=== PATIENT | male | born 1990 | race Native Hawaiian/Other Pacific Islander ===

== ENCOUNTER 2019-11-15 19:03 | Emergency (ER) | payer SELFPAY ==
--- NOTE | 2019-11-15 19:28 | ED Physician Documentation ---
History of Present Illness - Stated complaint Stated Complaint: L PINKY INJ - Chief complaint Chief Complaint: Trauma Ext - Additonal information Additional information: This is a 29-year-old man who presents with a left pinky injury. He was playing basketball and his pinky caught on the elbow of his friend and twisted and snapped backwards. The bone of the finger popped through the skin, and he has a small open wound on the finger. He tried to reduce it himself and he was unable to do so. His pain is minimal right now, he states it felt tingly at first but now he is able to feel sensation over the finger. He has no pain in the rest of his hand. Review of Systems Skin: reports: Laceration (s) Musculoskeletal: reports: Extremity pain PD PAST MEDICAL HISTORY - Past Medical History Past Medical History: No - Present Medications Home Medications: Ambulatory Orders Medication Instructions Recorded Confirmed Cephalexin [Keflex] 500 mg PO Q6H #28 capsule 11/15/19 - Allergies Allergies/Adverse Reactions: Allergies Allergy/AdvReac Type Severity Reaction Status Date / Time No Known Drug Allergies Allergy Verified 11/15/19 19:13 - Living Situation Living Arrangement: reports: At home - Social History Smoking Status: Never smoker PD ED PE NORMAL - Vitals Vital signs reviewed: Yes - General General: Alert and oriented X 3 - HEENT HEENT: Atraumatic - Cardiac Cardiac: RRR - Respiratory Respiratory: No respiratory distress - Extremities Extremities: Other (Over the left radial aspect of the DIP there is a 1.5 cm laceration visible bone, no deformity. Patient is able to wiggle the tip of his finger and sensation is intact to light touch distally. No proximal phalanx pain, remainder of the hand is nontender.) - Neuro Neuro: Alert and oriented X 3 Results - Vitals Vitals: Vital Signs - 24 hr 11/15/19 11/15/19 19:09 21:26 Temperature 36.7 C 36.7 C Heart Rate 94 73 Respiratory 18 18 Rate Blood Pressure 156/95 H 166/102 H O2 Saturation 100 99 Oxygen O2 Source Room air - Rads (name of study) Xr R fingers Radiology: Other (Lateral proximal dislocation of the distal phalanx fifth digit, with a displaced 3 mm cortical fracture fragment the dislocated distal phalanx base) XR post-reduction Radiology: Other (Anatomic alignment of the finger with previous fracture no longer visualized) Procedures - Laceration (location) L finger Length in cm: 2 Wound type: Curved Neurovascular status: Sensory intact, Motor intact, Vascular intact Anesthesia: Lidocaine 1%, With bicarb Wound Preparation: Irrigated copiously NS, Wound explored Skin layer closure: Prolene, Size #-0 - enter number (6) Other: Patient tolerated well Complexity: Simple - Reduction Body part reduced: Finger Fracture or dislocation: Fracture dislocation Anesthesia: Digital block, Fentanyl Reduction aftercare: NV intact, Xray confirms reduction, Alignment improved, Splint applied, Other (Fracture dislocation was reduced with axial traction and the digit popped back into place with good alignment, Patient is able to Flex and extend his DIP slightly, sensation is intact, capillary refill is brisk.) PD MEDICAL DECISION MAKING - ED course ED course: Patient presents with an isolated injury to his left pinky, this appears to be an open fracture-dislocation, the wound itself appears clean and he is neurovascularly intact. X-ray confirms a fracture dislocation. I spoke with Dr. Queen of orthopedics who recommended copious irrigation, prophylactic antibiotics, reduction with suturing of the overlying wound, oral antibiotics to go home with, and close follow-up in his office in the next week. I think this is a reasonable plan, I discussed with the patient who is in agreement as well. Wound was cleaned and irrigated with 2 L of normal saline, IV was inserted and he was given 2g cefazolin IV. Digital block was performed and the fracture dislocation was reduced, it returned to place quite well and appeared stable there. Follow-up x-ray showed anatomic alignment. I sutured the laceration as noted above and afterwards applied Xeroform gauze over the wound, he was splinted with a foam/aluminum splint, and a bulky dressing was applied. I discussed wound care, in particular the concern for infection, and that he needs to keep a careful eye on it and return to the ED with any signs of infection. He was started on Keflex, follow-up was reviewed and patient was discharged home in good condition Departure - Departure Disposition: 01 Home, Self Care Clinical Impression: Fracture dislocation of finger Qualifiers: Encounter type: initial encounter Fracture type: open Qualified Code(s): S62.609B - Fracture of unspecified phalanx of unspecified finger, initial encounter for open fracture Condition: Good Instructions: ED Fx Finger Open Follow-Up: Emir Queen MD [Provider Admit Priv/Credential] - Within 1 week (Call to confirm follow-up appointment within 1 week.) Prescriptions: Cephalexin [Keflex] 500 mg PO Q6H #28 capsule Comments: You have a fracture dislocation of your left pinky. We reduced it into alig nment, please keep the splint in place until you follow-up with Dr. Queen. This was an open fracture/dislocation and despite our cleaning it is at risk for infection. Please take the antibiotic as prescribed, and if you notice any signs of infection such as redness or pus around the wound, or if your finger is becoming swollen, or you have a fever, return to the emergency department. The stitches should be checked for removal in around 10 days. If your bandage becomes soaked through, you can place a small amount of antibiotic ointment over the cut and put us clean bandage over top of it. Discharge Date/Time: 11/15/19 21:31
[2019-11-15] MEDS ORDERED: BUFFERED LIDOCAINE 10 ML SYRINGE SUBQ STA (19:36)
[2019-11-15] MEDS ORDERED: oxyCODONE 5 MG TABLET PO STA (19:36)
--- NOTE | 2019-11-15 19:59 | XRAY Report ---
Reason: Trauma, deformed Procedure Date: 11/15/2019 Accession Number: [id number] / [id number] Procedure: XR - Finger(s) LT CPT Code: Final Report FULL RESULT: EXAM: LEFT FIFTH DIGIT RADIOGRAPHY EXAM DATE: 11/15/2019 07:26 PM. CLINICAL HISTORY: Trauma, deformed. COMPARISON: None. TECHNIQUE: 3 views. FINDINGS: Bones: Normal. No fracture or bone lesion. Joints: Lateral dislocation distal phalanx fifth digit. At the base of the displaced distal phalanx fifth digit is a 3 mm cortical fracture fragment AP view. Soft Tissues: Normal. No soft tissue swelling. IMPRESSION: 1. Lateral proximal dislocation distal phalanx fifth digit. 2. Displaced 3 mm cortical fracture fragment dislocated distal phalanx base. [facility]
[2019-11-15] MEDS ORDERED: ceFAZolin 2 GM in SODIUM CHLORIDE 0.9% 100ML 100 ML IV STA (20:00)
--- NOTE | 2019-11-15 20:19 | MISCELLANEOUS PROVIDER NOTE ---
Miscellaneous Provider Note - - Note: Phone discussion with Dr. Vee regarding left hand open DIP dislocation with possible small avulsion fracture. Recommended bedside irrigation with >2L saline, reduction, closure and splinting. Pt reportedly up to date with tetanus. Recommend IV abx in ED and oral abx on discharge. Discussed case with fellowship trained hand and wrist specialist from [facility] who confirms that this is reasonable and appropriate care at this juncture. Will plan to see patient in next 1-2 days in [facility] or sooner as needed. Dr. Vee notes agreeable and comfortable with this plan.
[2019-11-15] MEDS ORDERED: fentaNYL 100 MCG/2 ML VIAL IVP STA (20:47)
[2019-11-15 21:27] VITALS: BP 166/102
--- NOTE | 2019-11-15 22:01 | XRAY Report ---
Reason: Post reduction left 5th digit Procedure Date: 11/15/2019 Accession Number: [id number] / [id number] Procedure: XR - Finger(s) LT CPT Code: Final Report FULL RESULT: EXAM: LEFT FIFTH DIGIT RADIOGRAPHY EXAM DATE: 11/15/2019 09:47 PM. CLINICAL HISTORY: Post reduction left 5th digit. COMPARISON: FINGER(S) LT 11/15/2019 7:21 PM. TECHNIQUE: 1 view. FINDINGS IMPRESSION: Single PA view of the left fifth finger now shows anatomic alignment without residual subluxation. The previously described fracture at the base of the distal phalanx is not definitively visualized on this view. [facility]
== END 2019-11-15 21:31 | disposition home or self-care (01) ==
LOC: ED 19:03
DX: S62.637B Displaced fracture of distal phalanx of left little finger, initial encounter for open fracture (principal); W51.XXXA Accidental striking against or bumped into by another person, initial encounter; Y93.67 Activity, basketball
CPT/HCPCS: 26755; 73140; 99284; A9270